=== PATIENT | female | born 1965 | race Caucasian/White ===

== ENCOUNTER → 2017-06-19 11:37 | Outpatient (CLI) | payer MEDICAID, SELFPAY ==
--- NOTE | 2017-06-19 16:11 | STRESSREP_ITS ---
Stress Test Report Exercise stress test. 51-year-old lady with a history of chest pain. Stress protocol: Resting EKG demonstrates normal sinus rhythm with rate of 85 bpm normal intervals and noted resting blood pressure is 122/104 mmHg. The patient exercised according to the regular [facility] protocol for total duration of 6 minutes and 30 seconds the maximum heart rate attained was 176 bpm which was 105 % of maximum predicted heart rate the maximum workload attained was 7.7 metabolic equivalents. At rest there were no ST or T-wave changes noted suggest ischemia at peak exercise upsloping ST changes were noted with no meet the criteria for ischemia. No clinical angina was noted the test was terminated due to leg fatigue. Resting blood pressure is 122/104 mmHg with a peak blood pressure 186/54 mmHg. Conclusion: Exercise stress test with no evidence of ischemia at a high workload Good functional capacity. No arrhythmias noted.
== END ==
PROVIDERS: Family Provider Student in an Organized Health Care Education/Training Program; PCP Student in an Organized Health Care Education/Training Program; Visit Provider Student in an Organized Health Care Education/Training Program
DX: R06.02 Shortness of breath (principal); R07.9 Chest pain, unspecified
CPT/HCPCS: 93017

== ENCOUNTER 2023-07-03 12:19 | Emergency (ER) | payer OTHER, SELFPAY ==
[2023-07-03 12:19] VITALS: BP 109/65; PULSE 71; RESP 14; TEMP 36.1; O2SAT 100; BMI 26.6
--- NOTE | 2023-07-03 12:33 | EX.ED.DYSGE1 ---
HPI <LAURA Farnsworth - Last Filed: 07/03/23 14:42> History of Present Illness Chief Complaint: Hypotension Narrative Narrative: Patient presenting today with concerns for hypotension. She reports that she has been constipated over the last several weeks off and on. Yesterday she had gone 5 days without a bowel movement and decided to administer 2 enemas, 4 Dulcolax, and MiraLAX. She has had several bowel movements since. Today while at work she became nauseous and lightheaded. They took her blood pressure and noticed that it was 80/59. She became concerned and called her PCP, she was seen in the office this morning, her blood pressure there was 80/52 and encouraged that she come into the ED for evaluation. She reports that her mouth is dry and she feels dehydrated. She also reports a headache that started this morning that is consistent with her normal headaches. She denies any fevers, chills, recent illness, chest pain, abdominal pain, or vomiting. She has a PMH of hypothyroidism, depression, headaches, and hypertension. PFSH <LAURA Farnsworth - Last Filed: 07/03/23 14:42> PFSH Home Medications citalopram 40 mg tablet 40 mg PO DAILY 01/13/14 [History Last Taken Unknown] levothyroxine 50 mcg tablet 50 mcg PO DAILY 01/13/14 [History Last Taken 01/16/14 06:15 50] tamoxifen 10 mg tablet 10 mg PO DAILY 01/13/14 [History Last Taken Unknown] Allergy/AdvReac Type Severity Reaction Status Date / Time No Known Allergies Allergy Verified 07/03/23 12:20 Social History Smoking Status: Never smoker ROS <LAURA Farnsworth - Last Filed: 07/03/23 14:42> ROS ED Constitutional Constitutional ED: Denies chills or fever(s) Cardiovascular Cardiovascular: Denies chest pain Respiratory/Chest Respiratory/Chest: Denies cough or dyspnea Gastrointestinal Gastrointestinal: Reports constipation and nausea; Denies abdominal pain or vomiting Genitourinary Genitourinary ED: Denies dysuria, hematuria or urinary urgency Musculoskeletal Musculoskeletal: Denies arthralgias or myalgias Integumentary Denies rash Neurologic Neurologic: Reports headache(s); Denies weakness EXAM <LAURA Farnsworth Last Filed: 07/03/23 14:42> Physical Exam Const Vital Signs: 07/03/23 12:19 07/03/23 12:19 07/03/23 14:13 Temperature 97 F L Temperature Source Temporal Pulse Rate 71 Respiratory Rate 14 Respiratory Effort Normal Non-Labored Respiratory Pattern Normal Blood Pressure 109/65 101/66 Blood Pressure Mean 79 77 Pulse Ox 100 Oxygen Delivery Method Room Air 07/03/23 14:19 07/03/23 14:33 Temperature 97.1 F L Temperature Source Pulse Rate 68 68 Respiratory Rate 14 14 Respiratory Effort Respiratory Pattern Blood Pressure 101/66 101/66 Blood Pressure Mean 77 77 Pulse Ox 98 98 Oxygen Delivery Method Room Air Positive well nourished, well developed and no apparent distress General Appearance ED: well developed HEENT Reports normocephalic, head/scalp atraumatic and dry mucous membranes Mouth ED: Yes dry mucous membranes Mouth: dry mucous membranes Eyes PERRL and EOMs intact bilaterally Neck full ROM and supple Chest Wall inspection of chest normal Resp normal respiratory effort and clear to auscultation bilaterally Cardio regular rate and regular rhythm GI soft to palpation, non-tender, non-distended and no masses Back/Spine normal ROM and normal to inspection Extremity normal to inspection and full ROM Neuro oriented x3, CN's II-XII intact bilaterally, moves all extremities, no focal motor deficits and no sensory deficits noted Sensorium / Orientation: awake and alert Psych mental status grossly normal and thought process normal Skin no rashes or lesions noted and no wounds <Dr. Agapito Fisher DO - Last Filed: 07/03/23 15:28> Physical Exam Const Vital Signs: 07/03/23 12:19 07/03/23 12:19 07/03/23 14:13 Temperature 97 F L Temperature Source Temporal Pulse Rate 71 Respiratory Rate 14 Respiratory Effort Normal Non-Labored Respiratory Pattern Normal Blood Pressure 109/65 101/66 Blood Pressure Mean 79 77 Pulse Ox 100 Oxygen Delivery Method Room Air 07/03/23 14:19 07/03/23 14:33 Temperature 97.1 F L Temperature Source Pulse Rate 68 68 Respiratory Rate 14 14 Respiratory Effort Respiratory Pattern Blood Pressure 101/66 101/66 Blood Pressure Mean 77 77 Pulse Ox 98 98 Oxygen Delivery Method Room Air MDM <LAURA Farnsworth - Last Filed: 07/03/23 14:42> MDM MDM Narrative Medical decision making narrative: Patient is well-appearing and in no acute distress. She clinically does appear dry. Blood pressure is 109/65. She reports her lightheadedness has improved. Labs will be obtained and she will be given IV fluids and Zofran. She did report that she recently had her thyroid levels checked by her PCP and her T3 was slightly low, she thinks that this has something to do with her constipation. These were rechecked, T3 here is 1.9. Patient is not to appear to be in a thyroid emergency such as myxedema coma or thyroid storm. Her labs overall are unremarkable aside from a slight bump in her creatinine at 1.3 and a sodium of 135. Lactic acid is WNL. On reexamination she reports improvement of her symptoms, her blood pressure has improved and is now 101/66. I encouraged that she follow-up with her PCP and she will be discharged home in stable condition. Return instructions discussed. Lab Data Attestation: I reviewed the patient's lab results. Labs: Laboratory Results - last 24 hr 07/03/23 12:40 WBC 6.9 RBC 4.63 Hgb 12.6 Hct 39.0 MCV 84.2 MCH 27.2 MCHC 32.3 RDW Std Deviation 39.3 RDW Coeff of Sukumar 12.9 Plt Count 181 MPV 10.7 Immature Gran % (Auto) 0.100 Neut % (Auto) 66.8 Lymph % (Auto) 25.8 Throckmorton % (Auto) 5.8 Eos % (Auto) 0.9 Baso % (Auto) 0.6 Absolute Neuts (auto) 4.6 Absolute Lymphs (auto) 1.79 Nucleated RBC % 0 Sodium 135 L Potassium 4.1 Chloride 104 Carbon Dioxide 26.0 Anion Gap 5 BUN 13 Creatinine 1.30 H Estim Creat Clear Calc 46.55 Est GFR (MDRD) Af Amer 54 L Est GFR (MDRD) Non-Af 45 L BUN/Creatinine Ratio 10.0 Glucose 87 Lactic Acid 1.1 Calcium 9.0 TSH 1.55 Free T4 1.30 Free T3 pg/dL 1.9 L EKG Initial EKG: Comments: 55 bpm, sinus bradycardia, no ST elevation, reviewed and interpreted by attending ED physician <Dr. Agapito Fisher, - Last Filed: 07/03/23 15:28> [facility] MDM Narrative Medical decision making narrative: Patient is well-appearing and in no acute distress. She clinically does appear dry. Blood pressure is 109/65. She reports her lightheadedness has improved. Labs will be obtained and she will be given IV fluids and Zofran. She did report that she recently had her thyroid levels checked by her PCP and her T3 was slightly low, she thinks that this has something to do with her constipation. These were rechecked, T3 here is 1.9. Patient is not to appear to be in a thyroid emergency such as myxedema coma or thyroid storm. Her labs overall are unremarkable aside from a slight bump in her creatinine at 1.3 and a sodium of 135. Lactic acid is WNL (no signs of distributive shock). There is no chest pain, palpitation or shortness of breath to suggest cardiogenic shock. There is no trauma neck or back pain concerns neurogenic shock. There is no bleeding diathesis or anemia to suggest hemorrhagic shock. No chest pain shortness of breath or other cardiopulmonary complaints to suggest obstructive shock. On reexamination she reports improvement of her symptoms, her blood pressure has improved and is now 101/66. I encouraged that she follow-up with her PCP and she will be discharged home in stable condition. Return instructions discussed. ED attending note: I evaluated the patient in conjunction with the [facility]. I agree with his/her statements and above findings. I have personally performed a face to face assessment of the patient and have reviewed the [facility] Note. I performed a substantive portion of the visit including all aspects of the following. I personally saw the patient performed chart review, physical exam, reviewed labs, imaging (if obtained), and formulated a treatment and management plan. This note was generated with [employer] dictation software. It may contain incorrect words, spelling, and punctuation that were not noted in review of the chart prior to signing. Lab Data Labs: Laboratory Results - last 24 hr 07/03/23 12:40 WBC 6.9 RBC 4.63 Hgb 12.6 Hct 39.0 MCV 84.2 MCH 27.2 MCHC 32.3 RDW Std Deviation 39.3 RDW Coeff of Sukumar 12.9 Plt Count 181 MPV 10.7 Immature Gran % (Auto) 0.100 Neut % (Auto) 66.8 Lymph % (Auto) 25.8 Throckmorton % (Auto) 5.8 Eos % (Auto) 0.9 Baso % (Auto) 0.6 Absolute Neuts (auto) 4.6 Absolute Lymphs (auto) 1.79 Nucleated RBC % 0 Sodium 135 L Potassium 4.1 Chloride 104 Carbon Dioxide 26.0 Anion Gap 5 BUN 13 Creatinine 1.30 H Estim Creat Clear Calc 46.55 Est GFR (MDRD) Af Amer 54 L Est GFR (MDRD) Non-Af 45 L BUN/Creatinine Ratio 10.0 Glucose 87 Lactic Acid 1.1 Calcium 9.0 TSH 1.55 Free T4 1.30 Free T3 pg/dL 1.9 L Discharge Plan Triage Chief Complaint: Hypotension ED Midlevel Provider: Margaret Kerr ED Provider: Agapito Fisher Dx/Rx/DC Orders Clinical Impression: Hypotension, Dehydration Instructions: Hypotension Dc, ED Dehydration (Adult) Prescriptions: No Action citalopram 40 MG tablet 40 mg PO DAILY Patient Comments: mood tamoxifen 10 MG tablet 10 mg PO DAILY Patient Comments: breast CA med levothyroxine 50 MCG tablet 50 mcg PO DAILY Patient Comments: thyroid Primary Care Provider: Don Meadows Referrals: Don Meadows DO [Primary Care Provider] - 5-7 Days Activity Restrictions/Additional Instructions: Please follow-up with your PCP, return for any worsening of your symptoms. Disposition Disposition: Home, Self Care Discharge Date/Time: 07/03/23 14:34
--- NOTE | 2023-07-03 12:36 | EKG12_ITS ---
Test Reason : HIGH BP Blood Pressure : / mmHG Vent. Rate : 055 BPM Atrial Rate : 055 BPM P-R Int : 138 ms QRS Dur : 082 ms QT Int : 500 ms P-R-T Axes : 075 016 041 degrees QTc Int : 478 ms Sinus bradycardia Otherwise normal ECG Confirmed by CARLIE MCKINLEY, JERAD ([id number]), electronic news gathering editor ROCHELLE TAN ([id number]) on 07/06/2023 11:34:12 AM Referred By: Confirmed By:JERAD SEXTON MD
[2023-07-03] MEDS: Ondansetron 4 MG/2 ML Vial IV (12:43)
[2023-07-03] MEDS: 0.9% Normal Saline (1000mL) 1,000 ML 999 ML IV (12:43)
[2023-07-03 12:54] LABS: Absolute Lymphocyte Count 1.79 X10^3/uL (0.83-4.51); Absolute Neutrophil Count 4.6 X10^3/uL (2.0-7.7); Basophil# 0.04 X10^3/uL; Basophil% 0.6 % (0-1); Eosinophil# 0.06 X10^3/uL; Eosinophils% 0.9 % (0-5); Hemoglobin 12.6 g/dL (12.0-15.0); Lymphocyte # 1.79 X10^3/ul (0.83-4.51); Lymphocyte % 25.8 % (19-41); Mean Corp Hgb Conc 32.3 g/dL (32-36); Mean Corpuscular Hgb 27.2 pg (27.0-32.0); Mean Corpuscular Volume 84.2 fL (81-99); Mean Platelet Vol. 10.7 fl (6.2-12.0); Monocyte% 5.8 % (0-10); NRBC Flagged by Analyzer 0 % (0-5); Neutrophil # 4.63 X10^3/uL (2.7-7.7); Neutrophil % 66.8 % (47-70); Platelet Count 181 K/mm3 (150-450); RBC Distribution Width CV 12.9 % (11.6-14.6); RBC Distribution Width SD 39.3 fl (35.1-43.9); Red Blood Count 4.63 M/mm3 (4.2-5.4); White Blood Count 6.9 K/mm3 (4.4-11.0)
[2023-07-03 13:32] LABS: Anion Gap 5 (5-15); BUN 13 mg/dL (7-18); Chloride 104 mmol/L (98-107); EST Glomerular Filtration Rate 45 mL/min (>60); Est Glom Filt Rate - Afr Amer 54 mL/min (>60); Estimated Creatinine Clearance 46.55 ml/min; Free T3 1.9 pg/mL (2.18-3.98); Glucose 87 mg/dL (74-106); Potassium 4.1 mmol/L (3.5-5.1); Sodium Level 135 mmol/L (136-145); Thyroid Stim Hormone (TSH) 1.55 uIU/mL (0.358-3.74)
[2023-07-03 13:33] LABS: Lactic Acid 1.1 mmol/L (0.4-1.9)
[2023-07-03 14:13] VITALS: BP 101/66
[2023-07-03 14:19] VITALS: BP 101/66; PULSE 68; RESP 14; O2SAT 98
[2023-07-03 14:33] VITALS: BP 101/66; PULSE 68; RESP 14; TEMP 36.2; O2SAT 98
== END 2023-07-03 14:34 | disposition home or self-care (01) ==
PROVIDERS: Physician Assistant; Emergency Provider Emergency Medicine; PCP Student in an Organized Health Care Education/Training Program; Visit Provider Emergency Medicine
DX: I95.9 Hypotension, unspecified (principal); E86.0 Dehydration
CPT/HCPCS: 80048; 83605; 84439; 84443; 84481; 85025; 93005; 96361; 96374; 99282; A4216; J2405